=== PATIENT | female | born 1955 | race Caucasian/White ===

== ENCOUNTER → 2024-03-26 10:17 | Outpatient (REF) | payer MEDICARE, OTHER, SELFPAY | LOC: HWRAD 10:17 | PROVIDERS: ATTENDING PHYSICIAN Internal Medicine | DX: M81.0 Age-related osteoporosis without current pathological fracture (principal); Z12.31 Encounter for screening mammogram for malignant neoplasm of breast | CPT/HCPCS: 77063; 77067; 77080 ==

== ENCOUNTER 2024-10-05 15:05 | Emergency (ER) | payer MEDICARE, OTHER, SELFPAY ==
[2024-10-05 15:07] VITALS: BP 186/108
[2024-10-05 15:30] VITALS: BP 140/75; BMI 25.2
--- NOTE | 2024-10-05 15:52 | ED.GENMED ---
History of Present Illness
General
Chief Complaint: Headache
Source: patient
Exam Limitations: none
Time Seen by Provider: 10/05/24 15:40
Nursing documentation reviewed up to this point in time: agreed with
History of Present Illness
History of Present Illness:
Patient presents ED secondary to 5-day history of intermittent headache, along with sinus congestion. Denies fever or chills. Denies dizziness. Denies nausea or vomiting. Denied blurred vision. Denies loss of sensation or weakness. Denies
difficulty with ambulation. Patient went to local pharmacy yesterday and was prescribed aseb-bav-odkzfaa decongestant, which she has taken 6-8 times, with worsening dizziness. Patient was told that dizziness can be one of the side effects of the
medication. Denies sick contact. Denies recent travel. Denies recent change in medications or diet. Denies coughing. Denies sore throat. Denies loss of appetite. Patient was evaluated at urgent care center earlier this morning and referred to
ED for further evaluation and treatment. In addition, patient does report seeing her primary care physician on regular basis, at least twice a year, with standard blood work, which have all been normal.
Past History
Past History
ED Past Medical History: HTN and Hypercholesterolemia
ED Past Surgical History: Appendectomy and Other (Hysterectomy)
Social History
Tobacco: Non-smoker
Alcohol: Occasional
Drug: None
Personal:
Living: with family
Family History
Family History: Other (no Significant)
Review of Systems
Review of Systems
Allergies reviewed?: Yes
All Other Systems: ROS reviewed and negative except as documented in HPI and ROS
Constitutional: Reports no symptoms; Denies fever or chills
EENT: Reports no symptoms
Respiratory: Reports no symptoms
Cardiac: Reports no symptoms
ABD/GI: Reports no symptoms
Musculoskeletal: Reports no symptoms
Skin: Reports no symptoms
Neurological: Reports dizzy and headache
Phy Exam
Physical Exam
Physical Exam:
Physical Exam
General: no apparent distress, not acutely ill. afebrile
Head: nc/at. eomi
Neck: supple. no meningeal signs. normal range of motion. no carotid bruit
Heart: s1/s2 regular rate and rhythm, no murmur. equal radial pulses.
Lungs: no acute respiratory distress. clear bilaterally
Abdomen: normal bowel sounds. not tender.
Neuro: alert and oriented. no focal neurological deficits
Skin: no rash
Psychiatric: well kept. interactive and cooperative
Extremities: no edema. no calf tenderness.
Course
Orders/Labs/Results
Orders:
Orders
10/05/24 15:10
Electrocardiogram (*1) Urgent
Reason for Study: Vertigo / Dizzy
10/05/24 15:12
EKG- Treatment ONCE
10/05/24 15:51
CT Head W/o Iv Contrast Urgent
Comment:
Reason For Exam: headache
Acetaminophen [Tylenol] 650 mg PO NOW STA
10/05/24 16:01
COVID-19 Antigen Urgent
Source: Nasal Swab
Influenza A+B Rapid Molecular Urgent
SARBJIT Source: Nasal Swab
Specimen Description:
10/05/24 15:10
10/05/24 15:10
Vital Signs
Initial and Last Documented VS:
Initial Vital Signs
Temp Pulse Resp BP Pulse Ox
98.1 F 103 18 186/108 100
10/05/24 15:07 10/05/24 15:07 10/05/24 15:07 10/05/24 15:07 10/05/24 15:07
Last Documented Vital Signs
Temp Pulse Resp BP Pulse Ox
98.5 F 78 17 134/79 99
10/05/24 15:30 10/05/24 17:37 10/05/24 17:37 10/05/24 17:37 10/05/24 15:30
MDM/Problems Addressed
MDM/Problems Addressed:
Patient presenting with nonspecific symptoms, likely secondary to viral illness versus medication induced side effects. Otherwise, patient is afebrile, hemodynamically stable, neurologically intact, and nontoxic-appearing, without any evidence of
dehydration. Patient will be discharged home at this time, with recommendation to take Tylenol/Motrin for symptom relief, along with continual hydration and PCP follow-up.
*Critical Care Note
Total Time (30-74mins, 75-104mins- exclusive of procedures): Not Applicable
ED Attending Note
-
Portions of this chart may have been created with voice recognition software.� Occasional wrong word or��sound alike� substitutions may have occurred due to the inherent limitations of voice recognition software.
Discharge Plan
Departure
Patient Disposition: Home (Routine Discharge)
Date of Disposition: 10/05/24
Time of Disposition: 18:01
Patient with high blood pressure during this ER visit?: Yes
Condition: Good
Discharge Problem:
Headache
Instructions: Headache, Adult (DC)
Prescriptions:
No Action
citalopram 10 MG tablet
10 mg PO DAILY
Multivitamin
1 tab PO DAILY
Probiotic
1 tab PO DAILY
hydrochlorothiazide 25 MG tablet
25 mg PO DAILY
rosuvastatin 20 MG tablet
20 mg PO .THREE TIMES A WEEK
Ca-D3-mag bq-cufk-tuc-radhika-bor [Calcium 600-D3 Plus (mag-zinc)] 1 EACH tablet
1 ea PO DAILY
Tumeric/Ging/[place]/Oreg/Capryl [Candicidal Capsule] 1 EACH Capsule
1 ea PO DAILY
Referrals:
UNKNOWN - PT DOES,NOT KNOW [Family Provider] -
Activity Restrictions/Additional Instructions:
As discussed, please follow up with your primary care physician with any further concerns.
Interventions
Interventions:
*Risk Screen - Suicide Last Done: 10/05/24 15:07
*General Assessment Last Done: 10/05/24 15:07
*Neglect/Abuse Screening Last Done: 10/05/24 15:07
ED- Fall Risk Assessment Last Done: 10/05/24 15:30
*ED COVID-19 Vaccine History Last Done: 10/05/24 15:30
*Nursing Disposition Last Done: 10/05/24 18:07
ED- Neurological Assessment Last Done: 10/05/24 15:30
Discharge Date and Time
Discharge Date/Time: 10/05/24 18:08
Print Language: OMANI
[2024-10-05] MEDS: TYLENOL 650 MG PO (16:04)
[2024-10-05 16:33] LABS: COVID-19 Antigen Negative (Negative)
[2024-10-05 17:37] VITALS: BP 134/79
== END 2024-10-05 18:08 | disposition home or self-care (01) ==
LOC: EMR 15:05
PROVIDERS: EMERGENCY PHYSICIAN Emergency Medicine
DX: R51.9 Headache, unspecified (principal); I10 Essential (primary) hypertension; E78.00 Pure hypercholesterolemia, unspecified
CPT/HCPCS: 99284; 70450; 87502; 87811; 93005

== ENCOUNTER → 2025-05-20 14:40 | Outpatient (REF) | payer MEDICARE, OTHER, SELFPAY | LOC: HWWDC 14:40 | PROVIDERS: ATTENDING PHYSICIAN Internal Medicine | DX: Z12.31 Encounter for screening mammogram for malignant neoplasm of breast (principal) | CPT/HCPCS: 77063; 77067 ==